=== PATIENT | female | born 1965 ===

== ENCOUNTER 2021-04-23 21:44 | Inpatient (IN) | payer MEDICARE ==
[~2021-04-23] VITALS: Ht 172.7 cm; Wt 107.5 kg
[~2021-04-23 21:44] MED LIST: OMNIPAQUE 350 MG/ML, 100ML BOTTLE ONE
[2021-04-23] MEDS ORDERED: SODIUM CHLORIDE 0.9% 1,000ML IVBOLUS ONE (22:00)
[2021-04-23] MEDS ORDERED: PLEASE ENTER ALLERGIES MC SCH (22:00)
[2021-04-23] MEDS ORDERED: PANTOPRAZOLE 80 MG in SODIUM CHLORIDE 0.9% 100 ML IV SCH (22:00)
[2021-04-23] MEDS ORDERED: PLEASE ENTER HEIGHT AND WEIGHT MC SCH (22:00)
--- NOTE | 2021-04-23 22:00 | NUR ---
TX FROM [facility] FOR GI BLEED. HX OF DM, AND RENAL FAILURE ON PD. PT ALERT AND ORIENTED, BP ON ARRIVAL 111/57. PLACED ON ALL MONITORS, FALL PRECAUTIONS IN PLACE.
[2021-04-23 22:05] LABS: MEAN CORPUSCULAR HEMOGLOBIN 30.6 pg (27.0-34.8); MEAN CORPUSCULAR HGB CONC 32.2 g/dL (32.4-35.8); MEAN PLATELET VOLUME 9.1 fL (7.4-10.4); PLATELET COUNT 314 x10^3/uL (130-400); RED BLOOD COUNT 3.43 x10^6/uL (3.82-5.3); RED CELL DISTRIBUTION WIDTH 16.3 % (9.6-15.2)
[2021-04-23 22:29] LABS: LYMPH#(MANUAL) 0.46 x10^3/uL (1-3.4); LYMPHS% (MANUAL) 2 % (22-44); MONOS#(MANUAL) 0.92 x10^3/uL (0.3-2.7); MONOS% (MANUAL) 4 % (2-9); SEG#(MANUAL) 21.71 x10^3/uL (1.8-6.8); SEGS% (MANUAL) 94 % (42-75)
[2021-04-23 22:30] LABS: ANISOCYTOSIS 1+; PMNS WITH VACUOLES 1+
[2021-04-23 22:31] LABS: <PLATELET ESTIMATE> ADEQUATE; LARGE PLATELETS 1+
--- NOTE | 2021-04-23 22:38 | NUR ---
SPOKE WITH PT'S , OKAY PER PT TO DISCUSS UPDATE WITH HIM. HE WILL CALL BACK IN THE MORNING FOR ANOTHER UPDATE.
--- NOTE | 2021-04-23 22:54 | NUR ---
PT TRANSPORTED TO CT. REPORT TO SUSSY PURCELL.
--- NOTE | 2021-04-23 22:59 | NUR ---
Report received from BINH Pena. This RN to assume care. Patient in CT.
--- NOTE | 2021-04-23 23:12 | NUR ---
Patient returned from CT. Medicated patient per oct.
--- NOTE | 2021-04-24 00:28 | NUR ---
Report given to BINH Wills. Patient transferred to room 404-1.
[2021-04-24] MEDS ORDERED: SODIUM CHLORIDE 0.9% 1,000ML IVBOLUS ONE (00:30)
[2021-04-24 00:42] VITALS: BP 110/68
[2021-04-24] MEDS ORDERED: SODIUM BICARB 8.4%, 50ML SYRINGE ONE ×3 (01:20→03:06)
[2021-04-24] MEDS ORDERED: CALCIUM CHLORIDE 10%, 10ML SYR ONE (01:20)
[2021-04-24] MEDS ORDERED: ROCURONIUM 10MG/ML,5ML ONE (01:20)
[2021-04-24] MEDS ORDERED: PROPOFOL 100 ML IV ONE (01:29)
[2021-04-24] MEDS ORDERED: CODE BLUE RESPONSE XX ONE (01:30)
[2021-04-24 01:52] LABS: MEAN CORPUSCULAR HEMOGLOBIN 29.9 pg (27.0-34.8); MEAN CORPUSCULAR HGB CONC 30.6 g/dL (32.4-35.8); MEAN PLATELET VOLUME 9.5 fL (7.4-10.4); PLATELET COUNT 321 x10^3/uL (130-400); RED BLOOD COUNT 3.34 x10^6/uL (3.82-5.3)
[2021-04-24 01:59] LABS: ALBUMIN 1.9 g/dL (3.4-5.0); ANION GAP 27 mmol/L (5-15); CALCIUM 11.3 mg/dL (8.5-10.1); CHLORIDE 92 mmol/L (98-107)
[2021-04-24] MEDS ORDERED: SODIUM CHLORIDE 0.9%, 500ML IVBOLUS ONE ×3 (02:00→03:30)
[2021-04-24] MEDS ORDERED: SODIUM BICARBONATE 1 MEQ/ML, 50ML VIAL IVPush ONE (02:00)
[2021-04-24] MEDS ORDERED: NOREPINEPHRINE 8 MG in SODIUM CHLORIDE 0.9% 242 ML IV PRN ×2 (02:00→03:00)
[2021-04-24 02:15] LABS: ALANINE AMINOTRANSFERASE 2816 U/L (12-78); ALKALINE PHOSPHATASE 293 U/L (45-117); BILIRUBIN,TOTAL 0.4 mg/dL (0.2-1.0); TOTAL PROTEIN 5.4 g/dL (6.4-8.2)
[2021-04-24 02:48] LABS: D-DIMER 17.97 ug/mlFEU (0.00-0.52); INTERNATIONAL NORMALIZED RATIO 1.62 (0.93-1.1); PROTHROMBIN TIME 16.9 Seconds (9.6-11.5)
[2021-04-24] MEDS ORDERED: EPINEPHRINE SYRINGE 0.1 MG/ML, 10ML ONE (02:50)
[2021-04-24 02:55] LABS: BAND#(MANUAL) 1.77 x10^3/uL; BANDS%(MANUAL) 7 % (0-7); LYMPH#(MANUAL) 1.27 x10^3/uL (1-3.4); LYMPHS% (MANUAL) 5 % (22-44); METAMYELOCYTES# (MANUAL) 0.25 x10^3/uL (0-0); METAMYELOCYTES% (MANUAL) 1 % (0-1); MONOS#(MANUAL) 1.01 x10^3/uL (0.3-2.7); MONOS% (MANUAL) 4 % (2-9); SEGS% (MANUAL) 83 % (42-75)
[2021-04-24 02:59] LABS: <PLATELET ESTIMATE> ADEQUATE; ANISOCYTOSIS 1+; ECHINOCYTES 1+; LARGE PLATELETS 1+; PMNS WITH VACUOLES 1+
[2021-04-24] MEDS ORDERED: LACTULOSE 20 GM/30 ML UDC NG PRN (03:00)
[2021-04-24] MEDS ORDERED: SENNA 176 MG/5 ML ORAL SOL NG PRN (03:00)
[2021-04-24] MEDS ORDERED: VANCOMYCIN PER PHARMACY MC PRN (03:00)
[2021-04-24] MEDS ORDERED: FENTANYL PF 100 MCG/2ML IVPush PRN (03:00)
[2021-04-24] MEDS ORDERED: LIDOCAINE-MPF 1%, 2ML ENDO PRN (03:00)
[2021-04-24] MEDS ORDERED: CEFTRIAXONE 1,000 MG in DEXTROSE 5% 50 ML IVPB SCH (03:00)
[2021-04-24] MEDS ORDERED: PHARMACY MAY ADJ FOR RENAL FX MC SCH (03:00)
[2021-04-24] MEDS ORDERED: BISACODYL 10 MG SUPP PR PRN (03:00)
[2021-04-24] MEDS ORDERED: SENNA/DOCUSATE TABLET NG PRN (03:00)
[2021-04-24] MEDS ORDERED: SODIUM BICARB 8.4%, 50ML SYRINGE IVPush ONE ×6 (03:30→23:00)
[2021-04-24] MEDS ORDERED: METRONIDAZOLE PMX 500MG/100ML 100 ML IV SCH (03:30)
[2021-04-24] MEDS ORDERED: FILTER 0.22 MICRON IV PRN (03:30)
[2021-04-24] MEDS ORDERED: OCTREOTIDE 500 MCG in SODIUM CHLORIDE 0.9% 99 ML IV PRN (03:30)
[2021-04-24] MEDS ORDERED: VANCOMYCIN 1,600 MG in SODIUM CHLORIDE 0.9% 250 ML IV ONE (03:30)
[2021-04-24] MEDS ORDERED: AMIODARONE 150 MG in DEXTROSE 5% 100 ML IV ONE (03:30)
[2021-04-24] MEDS: AMIODARONE 450 MG in DEXTROSE 5% 241 ML IV PRN ×2 (03:42→13:43)
[2021-04-24] MEDS ORDERED: SODIUM CHLORIDE 0.9% 1,000 ML IV SCH (04:30)
[2021-04-24 07:09] LABS: FIO2 100 %
[2021-04-24] MEDS: VASOPRESSIN 20 UNIT in SODIUM CHLORIDE 0.9% 99 ML IV PRN (09:00)
[2021-04-24] MEDS ORDERED: ATROPINE SYRINGE 0.1 MG/ML, 10ML IVPush ONE (09:00)
[2021-04-24] MEDS: PROPOFOL 100 ML IV PRN ×2 (10:00→18:14)
--- NOTE | 2021-04-24 10:14 | NUR ---
TF recs if needed: Vital HP w/ end goal rate of 50 mL/hr (ON propofol); 60 mL/hr (OFF propofol). Addendum: 04/24/21 at [address] Amended: Links added.
[2021-04-24] MEDS ORDERED: INSULIN LISPRO 100 UNITS/ML, PEN SQ-INSULIN SCH (11:00)
[2021-04-24] MEDS: INSULIN LISPRO 100 UNITS/ML, PEN SQ-INSULIN SCH ×2 (12:00→17:22)
[2021-04-24] MEDS: MEROPENEM 500 MG in SODIUM CHLORIDE 0.9% 100 ML IV SCH ×2 (12:29→19:59)
[2021-04-24] MEDS: PANTOPRAZOLE 40 MG IV IV SCH ×2 (12:29→17:22)
[2021-04-24 12:36] LABS: ALBUMIN 2.1 g/dL (3.4-5.0); ANION GAP 25 mmol/L (5-15); CALCIUM 8.8 mg/dL (8.5-10.1); CHLORIDE 95 mmol/L (98-107)
[2021-04-24 12:52] LABS: ALANINE AMINOTRANSFERASE 3448 U/L (12-78); ALKALINE PHOSPHATASE 354 U/L (45-117); BILIRUBIN,TOTAL 0.6 mg/dL (0.2-1.0); CREATININE 8.57 mg/dL (0.55-1.02); TOTAL PROTEIN 5.9 g/dL (6.4-8.2)
[2021-04-24] MEDS ORDERED: DEXAMETHASONE 4 MG/ML, 1ML IVPush SCH (13:00)
[2021-04-24] MEDS ORDERED: SODIUM BICARBONATE 8.4% 150 MEQ in DEXTROSE 5% 1,000 ML IV SCH (13:00)
[2021-04-24] MEDS: NOREPINEPHRINE 32 MG in SODIUM CHLORIDE 0.9% 218 ML IV PRN ×2 (13:30→20:03)
[2021-04-24] MEDS ORDERED: DEXTROSE 50%, 50ML SYRINGE ONE (17:22)
[2021-04-24] MEDS: DEXTROSE 50%, 50ML SYRINGE IVPush PRN ×3 (17:26→18:15)
[2021-04-24] MEDS ORDERED: GLUCAGON 1 MG IM PRN (17:30)
[2021-04-24] MEDS ORDERED: DEXTROSE 4 GM TAB.CHEW PO PRN (17:30)
[2021-04-24] MEDS ORDERED: ATROPINE SYRINGE 0.1 MG/ML, 10ML ONE (18:14)
[2021-04-24] MEDS ORDERED: SODIUM CHLORIDE FLUSH 10ML SYR IVF SCH (21:00)
[2021-04-24] MEDS ORDERED: PHENYLEPHRINE 50 MG in SODIUM CHLORIDE 0.9% 245 ML IV PRN (22:30)
[2021-04-24] MEDS ORDERED: SODIUM BICARBONATE 1 MEQ/ML, 50ML VIAL ONE ×2 (23:07→23:08)
[2021-04-25] MEDS: INSULIN LISPRO 100 UNITS/ML, PEN SQ-INSULIN SCH ×2 (00:22→06:00)
[2021-04-25] MEDS: VASOPRESSIN 20 UNIT in SODIUM CHLORIDE 0.9% 99 ML IV PRN (00:38)
[2021-04-25] MEDS: PROPOFOL 100 ML IV PRN (01:39)
[2021-04-25] MEDS ORDERED: PHENYLEPHRINE 100 MG in SODIUM CHLORIDE 0.9% 240 ML IV PRN (02:00)
[2021-04-25] MEDS: NOREPINEPHRINE 32 MG in SODIUM CHLORIDE 0.9% 218 ML IV PRN (02:33)
[2021-04-25] MEDS ORDERED: ALBUMIN HUMAN 25% 100 ML IV ONE (03:00)
[2021-04-25] MEDS ORDERED: EPINEPHRINE 5 MG in SODIUM CHLORIDE 0.9% 245 ML IV PRN (03:00)
[2021-04-25] MEDS: AMIODARONE 450 MG in DEXTROSE 5% 241 ML IV PRN (03:29)
[2021-04-25] MEDS ORDERED: EPINEPHRINE 10 MG in SODIUM CHLORIDE 0.9% 240 ML IV PRN (04:00)
[2021-04-25 04:11] LABS: BASOPHILS % (AUTO) 0 % (0-1); EOSINOPHILS % (AUTO) 0 % (1-7); LYMPHOCYTES % (AUTO) 9 % (22-44); MEAN CORPUSCULAR HEMOGLOBIN 31.4 pg (27.0-34.8); MEAN CORPUSCULAR HGB CONC 30.4 g/dL (32.4-35.8); MEAN PLATELET VOLUME 9.5 fL (7.4-10.4); MONOCYTES % (AUTO) 2 % (2-9); NEUTROPHILS % (AUTO) 89 % (42-75); PLATELET COUNT 175 x10^3/uL (130-400); RED BLOOD COUNT 3.36 x10^6/uL (3.82-5.3); RED CELL DISTRIBUTION WIDTH 17.8 % (9.6-15.2)
[2021-04-25] MEDS: MEROPENEM 500 MG in SODIUM CHLORIDE 0.9% 100 ML IV SCH (04:11)
[2021-04-25 04:25] LABS: ALBUMIN 2.1 g/dL (3.4-5.0); ANION GAP 35 mmol/L (5-15); CALCIUM 7.6 mg/dL (8.5-10.1); CHLORIDE 92 mmol/L (98-107)
[2021-04-25] MEDS ORDERED: SODIUM CHLORIDE 0.9% 1,000 ML IV SCH (04:30)
[2021-04-25 04:33] LABS: INTERNATIONAL NORMALIZED RATIO 3.12 (0.93-1.1); PROTHROMBIN TIME 31.6 Seconds (9.6-11.5)
[2021-04-25 04:38] LABS: ALKALINE PHOSPHATASE 344 U/L (45-117); BILIRUBIN,TOTAL 0.8 mg/dL (0.2-1.0); CREATININE 9.53 mg/dL (0.55-1.02)
[2021-04-25 04:39] LABS: D-DIMER > 52.00 ug/mlFEU (0.00-0.52)
[2021-04-25 04:51] LABS: TOTAL IRON BINDING CAPACITY 151 mcg/dL (250-450)
[2021-04-25] MEDS ORDERED: SODIUM BICARB 8.4%, 50ML SYRINGE IVPush ONE (05:00)
[2021-04-25 05:03] LABS: % IRON SATURATION 157 % (20-55); IRON LEVEL 237 mcg/dL (50-170)
[2021-04-25 05:05] LABS: ALANINE AMINOTRANSFERASE 3453 U/L (12-78)
[2021-04-25] MEDS ORDERED: PHARMACOKINETIC CONSULTATION MC ONE (10:30)
[2021-04-25] MEDS ORDERED: PHARMACOKINETIC MONITORING MC PRN (10:30)
[2021-04-25] MEDS ORDERED: SODIUM BICARBONATE 8.4% 150 MEQ in DEXTROSE 5% 1,000 ML IV SCH (13:00)
== END 2021-04-25 06:51 | DRG 871 ==
LOC: ED 22:31 → EDIP 04-24 00:04 → 4WST 04-24 00:29 → CCU 04-24 01:23
PROVIDERS: ADMIT Internal Medicine; ATTEND Hospitalist
PROC: 5A1945Z Respiratory Ventilation, 24-96 Consecutive Hours (ICD-10-PCS; principal; 2021-04-24)
PROC: 0BH17EZ Insertion of Endotracheal Airway into Trachea, Via Natural or Artificial Opening (ICD-10-PCS; 2021-04-24)
PROC: 02HV33Z Insertion of Infusion Device into Superior Vena Cava, Percutaneous Approach (ICD-10-PCS; 2021-04-24)
PROC: 5A1D70Z Performance of Urinary Filtration, Intermittent, Less than 6 Hours Per Day (ICD-10-PCS; 2021-04-24)
DX: A41.9 Sepsis, unspecified organism (principal); R65.21 Severe sepsis with septic shock; N18.6 End stage renal disease; K72.00 Acute and subacute hepatic failure without coma; U07.1 COVID-19; J96.01 Acute respiratory failure with hypoxia; N17.9 Acute kidney failure, unspecified; K92.0 Hematemesis; J98.11 Atelectasis; J90 Pleural effusion, not elsewhere classified; I12.0 Hypertensive chronic kidney disease with stage 5 chronic kidney disease or end stage renal disease; E87.2 Acidosis; Z99.11 Dependence on respirator [ventilator] status; D64.9 Anemia, unspecified; E11.22 Type 2 diabetes mellitus with diabetic chronic kidney disease; E11.649 Type 2 diabetes mellitus with hypoglycemia without coma; Z66 Do not resuscitate; R29.6 Repeated falls; I48.0 Paroxysmal atrial fibrillation; I46.9 Cardiac arrest, cause unspecified; E11.21 Type 2 diabetes mellitus with diabetic nephropathy; E87.5 Hyperkalemia; Z79.899 Other long term (current) drug therapy; Z99.2 Dependence on renal dialysis
CPT/HCPCS: 36415; 36600; 71045; 74177; 80053; 80074; 80299; 82306; 82330; 82533; 82728; 82803; 82962; 83036; 83540; 83550; 83605; 83615; 83735; 83970; 84100; 84145; 84478; 84550; 85014; 85018; 85025; 85379; 85610; 85730; 86140; 86850; 86900; 87040; 87070; 87081; 87205; 90935; 92950; 93005; 93308; 94002; 99285; G0378; J0171; J0461; J0696; J1100; J2185; J2354; J2704; J3370; J7060; J7070; P9047; Q9967; U0005; C9113; J0282; J1815; J2370; J7030; J7040; J7050; U0003